=== PATIENT | male | born 1955 | race Two or more races ===

== ENCOUNTER → 2024-12-11 | Outpatient (CLI) | payer MEDICAID, SELFPAY ==
--- NOTE | 2024-12-11 12:30 | XR_ITS ---
Examination: MRI lumbar spine without contrast Date and time of exam: December 11, 2024, 1312 hours Technique: Multiple MRI axial and sagittal sections lumbar spine. Sagittal T2-weighted images, TR 3500, TE 118 T1 weighted transverse sections, TR 688 T8.5, T2-weighted sagittal sections T1 weighted sagittal sections TR 621, TE 30 T2 axial sections, TR 4, 190, TE 84. Findings: Chronic compression L1 vertebral body No acute lumbar fracture Grade 1 spondylolisthesis L5 on S1 Moderate disc narrowing L5-S1 Diffuse lumbar disc desiccation L5-S1 5 mm central lumbar disc bulge, combined with the grade 1 spondylolisthesis produces severe bilateral L5 ganglionic compression L4-L5 2 mm central lumbar disc bulges More cephalad levels unremarkable IMPRESSION: Grade 1 spondylolisthesis L5-S1 with 5 mm central lumbar disc bulge and severe bilateral L5 ganglionic compression
== END | disposition home or self-care (01) ==
PROVIDERS: PCP Physician Assistant; Referring Provider Physician Assistant; Visit Provider Physician Assistant
DX: M43.17 Spondylolisthesis, lumbosacral region (principal); G95.20 Unspecified cord compression; M80.80XS Other osteoporosis with current pathological fracture, unspecified site, sequela
CPT/HCPCS: 72148

== ENCOUNTER → 2024-12-17 | Outpatient (CLI) | payer MEDICARE, MEDICAID, SELFPAY ==
--- NOTE | 2024-12-17 | XR_ITS ---
Examination: Carotid arterial duplex scan, ultrasound. Date and time of exam: December 17, 2024, 11:50 a.m. 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 Systolic diastolic ratios have been calculated. Findings: Right peak systolic velocities: Distal internal carotid artery peak systolic velocity is 0.5 M/sec Proximal internal carotid artery peak systolic velocity is 1.6 M/sec Carotid bifurcation peak systolic velocity is 0.6 M/sec External carotid artery peak systolic velocity is 1.0 M/sec Vertebral artery flow is antegrade. Left peak systolic velocities: Distal internal carotid artery peak systolic velocity is 0.5 M/sec Proximal internal carotid artery peak systolic velocity is 1.2 M/sec Carotid bifurcation peak systolic velocity is 0.8 M/sec External carotid artery peak systolic velocity is 0.9 M/sec Vertebral artery flow is antegrade Doppler waveform analysis demonstrates bilateral spectral broadening Impression: Right internal carotid artery demonstrates 40 to 60% stenosis. Left internal carotid artery demonstrates 40 to 60% stenosis. Recommend correlation with carotid artery CTA postcontrast study follow-up
--- NOTE | 2024-12-17 12:33 | ECHO_ITS ---
Transthoracic Echo Report Ht (in): 64 Wt (lb): 190 Exam Location: Echo Lab Status: Outpatient Machine Cloth Examiner: Michelle Hodge Indications: Procedure Performed: BP: 138 / 77 HR: 72 MEASUREMENTS (Male / Female) Normal Values 2D ECHO LV Diastolic Diameter PLAX 4.7 cm 4.2 - 5.9 / 3.9 - 5.3 cm LV Systolic Diameter PLAX 3.0 cm IVS Diastolic Thickness 1.0 cm 0.6 - 1.0 / 0.6 - 0.9 cm LVPW Diastolic Thickness 1.1 cm 0.6 - 1.0 / 0.6 - 0.9 cm LV Relative Wall Thickness 0.4 LVOT Diameter 1.9 cm LA Volume Index 39.8 cm?/m? 16 - 28 cm?/m? Ascending Aorta Diameter 3.0 cm M-MODE AV Cusp Separation MM 1.3 cm DOPPLER AV Peak Velocity 98.6 cm/s AV Peak Gradient 3.9 mmHg AV Mean Gradient 2.0 mmHg AV Velocity Time Integral 19.3 cm LVOT Peak Velocity 90.3 cm/s LVOT Peak Gradient 3.3 mmHg LVOT Velocity Time Integral 17.9 cm LVOT Cardiac Index 1821.8 cm?/min?m? AV Area Cont Eq vti 2.6 cm? AV Area Cont Eq pk 2.6 cm? MV Area PHT 2.8 cm? Mitral E Point Velocity 37.7 cm/s Mitral A Point Velocity 64.0 cm/s Mitral E to A Ratio 0.6 LV E' Lateral Velocity 5.1 cm/s Mitral E to LV E' Lateral Ratio 7.4 LV E' Septal Velocity 4.5 cm/s Mitral E to LV E' Septal Ratio 8.5 TR Peak Velocity 159.0 cm/s TR Peak Gradient 10.1 mmHg PV Peak Velocity 57.3 cm/s PV Peak Gradient 1.3 mmHg FINDINGS Left Ventricle Normal left ventricular size, wall thickness, systolic function with no obvious regional wall motion abnormalities. There is grade I diastolic dysfunction of the left ventricle (impaired relaxation pattern). The ejection fraction is visually estimated at 55-60%. Right Ventricle The right ventricle is normal in size and systolic function. Left Atrium The left atrium is normal by two-dimensional, color flow and Doppler imaging with no structural abnormalities, no thrombus formation present. Right Atrium The right atrium is normal by two-dimensional imaging, color flow and Doppler imaging with no structural abnormalities, no thrombus formation present. Atrial Septum The interatrial septum appears normal with no evidence of a shunt. Aorta The aorta is normal by two-dimensional, color flow and Doppler interrogation. Mitral Valve The mitral valve is normal by two-dimensional, color flow and Doppler interrogation. There is no significant mitral valve regurgitation, stenosis or prolapse. Aortic Valve The aortic valve is trileaflet and normal by two-dimensional, color flow and Doppler interrogation. There is no significant aortic valve regurgitation. Tricuspid Valve The tricuspid valve is normal by two-dimensional, color flow and Doppler interrogation. There is mild tricuspid valve regurgitation. Pulmonic Valve The pulmonic valve is not well visualized. There is no significant pulmonic valve regurgitation. Vessels The pulmonary artery appears normal. The inferior vena cava pulmonary and hepatic veins appear normal. Pericardium The pericardium is normal by two-dimensional imaging. There is no significant pericardial effusion. CONCLUSIONS Indication: Essential (primary) hypertension Normal left ventricular size and function. Grade I diastolic dysfunction. Approximate ejection fraction is 55- 60%. Normal right ventricular size and function. Trace tricuspid regurgitation noted. No pericardial effusion. Tomás Mclaughlin (Electronically Signed) Final Date: 18 December 2024 01:26
== END | disposition home or self-care (01) ==
PROVIDERS: Referring Provider Physician Assistant Medical; Visit Provider Physician Assistant Medical
DX: I07.1 Rheumatic tricuspid insufficiency (principal); I50.30 Unspecified diastolic (congestive) heart failure; I65.23 Occlusion and stenosis of bilateral carotid arteries; I10 Essential (primary) hypertension
CPT/HCPCS: 93306; 93880